=== PATIENT | female | born 1990 | race Caucasian/White ===

== ENCOUNTER 2018-07-07 09:20 | Outpatient (CLI) | payer OTHER | END 2018-07-07 09:38 | disposition home or self-care (01) | LOC: SONOGRAMA 09:20 → MAMO-SONO 09:45 | DX: R10.33 Periumbilical pain (principal) ==

== ENCOUNTER → 2018-08-01 | Day surgery (SDC) | payer OTHER | END | disposition home or self-care (01) | LOC: ADM 07-28 08:00 → CIR.AMB 06:00 | DX: K42.9 Umbilical hernia without obstruction or gangrene (principal) ==

== ENCOUNTER 2023-06-13 13:56 | Day surgery (SDC) | payer OTHER ==
[~2023-06-13] VITALS: Ht 152.4 cm; Wt 59.9 kg
[2023-06-13 13:49] LABS: HEMATOCRIT 40.4 % (36.0-45.00); HEMOGLOBIN 14.1 g/dL (12.0-15.00); MEAN CELL VOLUME 90.4 fL (80.00-100.00); MEAN CORPUSCULAR HEMOGLOBIN 31.7 pg (27.00-32.0); PLATELET COUNT 201 K/uL (150-450); RED BLOOD COUNT 4.46 M/uL (4.00-6.00); RED CELL DISTRIBUTION WIDTH 12.4 % (11.5-14.5)
[~2023-06-13 13:56] MED LIST: RINGERS SOLUTION,LACTATED 1,000 ML IV SCH
[2023-06-13 14:10] LABS: ALBUMIN 4.4 gm/dL (3.4-5.0); BILIRUBIN TOTAL 0.7 mg/dL (0.3-1.2); CREATININE SERUM 0.64 mg/dL (0.55-1.02); GFR 106.22; GLOBULINA 3.7 G/DL (2.4-3.5); INR 1.03; PARTIAL THROMBOPLASTIN TIME 28.3 SECONDS (22.0-34.0); POTASSIUM 3.93 mEq/L (3.5-5.1); PROTHROMBIN TIME 10.8 SECONDS (9.0-11.5); TOTAL PROTEIN 8.1 gm/dL (6.4-8.2)
[2023-06-13 14:33] LABS: URINE APPEARANCE Clear; URINE BILIRRUBIN Negative (NEGATIVE); URINE BLOOD Moderate; URINE COLOR Yellow; URINE GLUCOSE Negative (NEGATIVE); URINE LEUKOCYTE Negative; URINE NITRATE Negative; URINE PROTEIN Negative (NEGATIVE); URINE UROBILINOGEN 0.2 E.U./dl
[2023-06-13 14:37] LABS: URINE BACTERIA 86.9 uL (0.0-1933); URINE EPITHELIAL CELLS 8.1 uL (0.0-38.8)
[2023-06-13 14:47] LABS: URINE WBC 1.6 uL (0.0-23.2)
[2023-06-13] MEDS ORDERED: CEFAZOLIN SODIUM 1,000 MG VIAL IV ONE (18:15)
[2023-06-13] MEDS ORDERED: OXYTOCIN 10 UNITS/ML VIAL IV ONE (18:15)
[2023-06-13] MEDS ORDERED: FLAGYL375 MG PO (21:46)
[2023-06-13] MEDS ORDERED: IBU800 MG PO (21:47)
[2023-06-13] MEDS ORDERED: ONDANSETRON HCL 2 MG/ML VIAL ONE (22:25)
== END 2023-06-14 05:20 | disposition home or self-care (01) ==
LOC: SEC-K 13:56 → ER 13:56 → CIR.AMB 13:56 → O/R 19:52 → SEC-K 19:52 → O/R 06-14 05:20 → CIR.AMB 06-14 05:20
PROVIDERS: Obstetrics & Gynecology; ATTEND General Practice
PROC: 10D17ZZ Extraction of Products of Conception, Retained, Via Natural or Artificial Opening (ICD-10-PCS; principal; 2023-06-13 18:00)
DX: O03.4 Incomplete spontaneous abortion without complication (principal); Z20.822 Contact with and (suspected) exposure to COVID-19